=== PATIENT | male | born 1980 | race Caucasian/White ===

== ENCOUNTER 2017-07-20 07:21 | Day surgery (SDC) | payer BC ==
[2017-07-19 14:51] LABS: BASOPHILS % (AUTO) 0.3 % (0-1); EOSINOPHILS # (AUTO) 0.2 X10'3 (0-0.9); EOSINOPHILS % (AUTO) 3.2 % (0-6); LYMPHOCYTES # (AUTO) 1.3 X10'3 (1.1-4.8); LYMPHOCYTES % (AUTO) 23.2 % (21-51); MEAN CORPUSCULAR HEMOGLOBIN 30.5 PG (27.0-31.0); MEAN CORPUSCULAR HGB CONC 35.1 % (33.0-36.5); MEAN CORPUSCULAR VOLUME 87.1 FL (78-98); MEAN PLATELET VOLUME 9.9 FL (7.4-10.4); MONOCYTES # (AUTO) 0.3 X10'3 (0-0.9); MONOCYTES % (AUTO) 5.3 % (2-12); NEUTROPHILS # (AUTO) 3.7 X10'3 (1.8-7.7); PRE OP HEMATOCRIT 43.8 % (42.0-52.0); PRE OP HEMOGLOBIN 15.4 g/dL (14.0-17.9); PRE OP PLATELET COUNT 162 X10'3 (140-440); RED BLOOD COUNT 5.03 X10'6 (4.70-6.10); RED CELL DISTRIBUTION WIDTH 12.4 % (11.5-14.5)
[2017-07-19 15:06] LABS: ALBUMIN 4.2 G/DL (3.4-5.0); ALBUMIN/GLOBULIN RATIO 1.3 (1.1-1.5); ALKALINE PHOSPHATASE 70 IU/L (46-116); BLOOD UREA NITROGEN 18 MG/DL (7-18); CALCIUM 9.2 MG/DL (8.5-10.1); CHLORIDE 103 MMOL/L (99-107); PRE OP ALT 59 U/L (30-65); PRE OP ANION GAP 8 (8-16); PRE OP AST 21 U/L (10-37); PRE OP BILIRUB, TOTAL 0.3 MG/DL (0.0-1.0); PRE OP GLUCOSE 109 MG/DL (70-104); PRE OP SODIUM 140 MMOL/L (135-145); TOTAL CARBON DIOXIDE 29.3 MMOL/L (24-32); TOTAL PROTEIN 7.5 G/DL (6.4-8.2); eGFR > 90 ML/MIN
[2017-07-20] VITALS (9 sets, daily range): BP systolic 130–141; BP diastolic 74–87
[~2017-07-20] VITALS: Ht 170.2 cm; Wt 136.8 kg
[~2017-07-20 07:21] MED LIST: IBUP100T53 PO; ceFAZolin inj. 3,000 MG in normal saline 100ml IV soln 100 ML IV ONE; famotidine 20mg tablet PO ONE
[2017-07-20] MEDS ORDERED: LIDOcaine 1% (10mg/ml) 2ml vial ONE (07:56)
[2017-07-20] MEDS ORDERED: glycopyrrolate 0.2mg/ml inj ONE (09:02)
[2017-07-20] MEDS ORDERED: sevoflurane 250ml liquid IH ONE (09:02)
[2017-07-20] MEDS ORDERED: neostigmine methylsulfate 1 MG/ML 10ml vial ONE (09:02)
[2017-07-20] MEDS ORDERED: fentaNYL/PF 50MCG/1 ML 2ML syringe ONE ×2 (09:05→09:52)
[2017-07-20] MEDS ORDERED: midazolam 2 mg/2 ml injection ONE (09:06)
[2017-07-20] MEDS ORDERED: propofol inj 20 ML IV ONE ×2 (09:06→09:21)
[2017-07-20] MEDS ORDERED: rocuronium 10mg/ml inj IV ONE (09:08)
[2017-07-20] MEDS ORDERED: BUPIVAcaine/PF 2.5 mg/ml (0.25%) 30ml vial ONE ×2 (09:40→09:58)
[2017-07-20] MEDS ORDERED: proCHLORperazine 10 MG/2 ml inj IV PRN (09:55)
[2017-07-20] MEDS ORDERED: meperidine/PF 25mg/ml syringe IV PRN ×3 (09:55)
[2017-07-20] MEDS ORDERED: ondansetron/PF 4mg/2ml inj IV PRN (09:55)
[2017-07-20] MEDS ORDERED: morphine 2 MG/ML inj. syringe IV PRN ×2 (09:55)
[2017-07-20] MEDS ORDERED: ringers solution, lacted 1,000 ML IV SCH (09:55)
[2017-07-20] MEDS ORDERED: HYDROcodone/acetaminophen 10/325mg tab PO ONE (11:00)
== END 2017-07-20 11:30 | disposition home or self-care (01) ==
LOC: PAS 07:21 → EDSEX 09:45 → PAS 10:20
PROVIDERS: ATTEND Orthopaedic Surgery
DX: S83.242A Other tear of medial meniscus, current injury, left knee, initial encounter (principal); S83.241A Other tear of medial meniscus, current injury, right knee, initial encounter; X58.XXXA Exposure to other specified factors, initial encounter; Y93.9 Activity, unspecified; Y92.89 Other specified places as the place of occurrence of the external cause; Y99.8 Other external cause status; M65.862 Other synovitis and tenosynovitis, left lower leg; M65.861 Other synovitis and tenosynovitis, right lower leg; F17.210 Nicotine dependence, cigarettes, uncomplicated
CPT/HCPCS: 29881; 36415; 80053; 85025; A6449; J0690; J2250; J2704; J2710; J3010; J3490; J7030; J7120; A7000

== ENCOUNTER 2018-09-30 21:49 | Emergency (ER) | payer BC ==
[~2018-09-30] VITALS: Ht 170.2 cm; Wt 118.6 kg
[~2018-09-30 21:49] MED LIST changes: -ceFAZolin inj. 3,000 MG in normal saline 100ml IV soln 100 ML IV ONE; -famotidine 20mg tablet PO ONE
--- NOTE | 2018-09-30 22:20 | NUR ---
PT HERE WITH VAGUE COMPLAINTS OF FEELING "FUZZY". NO SPECIFIC COMPLAINT BUT JUST DOESN'T FEEL RIGHT. PT RECENTLY DIAGNOSED WITH HTN, HAS BEEN ON MEDS FOR 5 DAYS YET BP IS 185/111.
[2018-09-30 23:27] VITALS: BP 141/93
== END 2018-09-30 23:28 | disposition home or self-care (01) ==
LOC: ER 21:50
DX: I10 Essential (primary) hypertension (principal); F41.9 Anxiety disorder, unspecified; Z79.899 Other long term (current) drug therapy
CPT/HCPCS: 93005; 99283